=== PATIENT | male | born 1980 | race American Indian/Alaskan Native ===

== ENCOUNTER 2019-05-04 12:00 | Emergency (ER) | payer OTHER ==
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
--- NOTE | 2019-05-04 13:29 | XRay Report ---
PROCEDURE: XR SPINE CERVICAL 2-3V HISTORY: neck pain FINDINGS: AP lateral and open-mouth views of the cervical spine were acquired and demonstrate no frac ture or malalignment of the cervical spine. The prevertebral soft tissues are within normal limits. T he intervertebral disc space heights appear preserved. IMPRESSION: No fracture is seen in the cervical spine This document is electronically signed by Deshaun Batres MD., May 04 2019 01:27:51 PM ET
[2019-05-04 13:57] VITALS: BP 139/95
== END 2019-05-04 13:49 | disposition home or self-care (01) ==
LOC: ED 12:00
DX: M54.2 Cervicalgia (principal); J45.909 Unspecified asthma, uncomplicated; Z79.899 Other long term (current) drug therapy; V49.49XA Driver injured in collision with other motor vehicles in traffic accident, initial encounter; Y93.89 Activity, other specified; Y92.410 Unspecified street and highway as the place of occurrence of the external cause; Y99.8 Other external cause status
CPT/HCPCS: 72040; 99283